=== PATIENT | female | born 1980 | race Caucasian/White ===

== ENCOUNTER 2017-12-29 16:00 | Emergency (ER) | payer MEDICAID ==
--- NOTE | 2017-12-29 16:47 | ED.PDOC ---
History of Present Illness - General Time Seen by Provider: 12/29/17 16:44 Source: patient Exam Limitations: no limitations - History of Present Illness Initial Comments: The patient is a 37-year-old female presenting to the emergency room secondary to itching of her skin. She has been exposed to sarcoptic mange. she does not appear to have significant folliculitis at this time. Her dog has just gotten treated. Additionally the patient has some right knee pain primarily over the medial collateral ligament and she has some locking and popping reported with her walking indicating a meniscus tear. ACL and PCL appear to be intact. She did not have any real trauma to the knee other than she just twisted it. She has injured this knee before. She is neurovascularly intact distally. Timing/Duration: unsure Severity: moderate Improving Factors: nothing Worsening Factors: nothing Associated Symptoms: denies symptoms Review of Systems - Review of Systems Constitutional: States: no symptoms reported EENTM: States: no symptoms reported Respiratory: States: no symptoms reported Cardiology: States: no symptoms reported Gastrointestinal/Abdominal: States: no symptoms reported Genitourinary: States: no symptoms reported Musculoskeletal: States: see HPI Skin: States: see HPI Neurological: States: no symptoms reported Endocrine: States: no symptoms reported All other Systems: No Change from Baseline Physical Exam - Physical Exam General Appearance: Alert, Comfortable, No apparent distress Eye Exam: bilateral normal Ears, Nose, Throat: hearing grossly normal, normal ENT inspection, normal pharynx Neck: full range of motion, supple Respiratory: no respiratory distress, no accessory muscle use Cardiovascular/Chest: normal peripheral pulses, no edema Peripheral Pulses: radial,right: 2+, radial,left: 2+ Rectal Exam: deferred Back Exam: no CVA tenderness, no vertebral tenderness Extremity: no pedal edema, normal capillary refill, other - see history of present illness Neurologic: vp cardiovascular service line II-XII nml as tested, alert, normal mood/affect, oriented x 3 Skin Exam: normal color Progress - Progress Progress: 12/29/17 16:47 the patient's 37-year-old female presenting to the emergency room secondary to right knee pain is most consistent with a medial collateral ligament injury along with a meniscus tear. The patient is going to be placed in a knee immobilizer. She needs to use this for 3-6 weeks. If she is still having some issue with the knee then she may require further orthopedic evaluation and imaging. She is neurovascularly intact at this time. Additionally the patient may be having some skin irritation from exposure to mange. She should use Vaseline intensive care lotion and she can continue to use her hydroxyzine as needed. ER warnings were given for any significant worsening. [id number] anti-inflammatory such as Motrin or Aleve can help some with the discomfort. Keep routine follow-up with primary care doctor. Departure - Departure Clinical Impression: Sarcoptes scabiei infestation Knee MCL sprain Qualifiers: Encounter type: initial encounter Laterality: right Qualified Code(s): S83.411A - Sprain of medial collateral ligament of right knee, initial encounter Disposition: Discharge to Home or Self Care Condition: Fair Diet: regular diet Activity: increase activity as tolerated Referrals: MINDI WELCH [Primary Care Provider] - 1-2 Weeks Additional Instructions: the patient's 37-year-old female presenting to the emergency room secondary to right knee pain is most consistent with a medial collateral ligament injury along with a meniscus tear. The patient is going to be placed in a knee immobilizer. She needs to use this for 3-6 weeks. If she is still having some issue with the knee then she may require further orthopedic evaluation and imaging. She is neurovascularly intact at this time. Additionally the patient may be having some skin irritation from exposure to mange. She should use Vaseline intensive care lotion and she can continue to use her hydroxyzine as needed. ER warnings were given for any significant worsening. [id number] anti-inflammatory such as Motrin or Aleve can help some with the discomfort. Keep routine follow-up with primary care doctor.
[2017-12-29 19:05] VITALS: BP 136/81; TEMP 99; O2SAT 95
== END 2017-12-29 17:01 | disposition home or self-care (01) ==
LOC: ER 16:00
DX: B86 Scabies (principal); S83.411A Sprain of medial collateral ligament of right knee, initial encounter; X50.0XXA Overexertion from strenuous movement or load, initial encounter; Y92.9 Unspecified place or not applicable

== ENCOUNTER 2018-01-05 15:58 | Emergency (ER) | payer MEDICAID | END 2018-01-05 16:21 | disposition left against medical advice (07) | LOC: ER 15:58 | DX: Z53.21 Procedure and treatment not carried out due to patient leaving prior to being seen by health care provider (principal) ==

== ENCOUNTER 2018-01-11 22:30 | Emergency (ER) | payer MEDICAID ==
--- NOTE | 2018-01-11 22:42 | ED.PDOC ---
History of Present Illness - General Chief Complaint: Skin/Abrasion/Tear Stated Complaint: skin rash Time Seen by Provider: 01/11/18 22:41 Source: patient Exam Limitations: no limitations - History of Present Illness Initial Comments: Aurea Garrett 37 y/o female stated that she held a kitten to check the gender as requested by niece and after several minutes started sneezing and had been itching all over Stated had same symptoms several years ago with sneezing and eyes got watery after she came across several cats.Denies SOB,difficulty swallowing.Also requesting Rx for lasix. Timing/Duration: just prior to arrival Severity: moderate Location: extremities Improving Factors: nothing Worsening Factors: nothing Associated Symptoms: rash Allergies/Adverse Reactions: Allergies Meperidine Allergy (Verified 01/11/18 22:52) Other Causes her to feel "like she is on fire" Metoclopramide [From Reglan] Adverse Reaction (Verified 01/11/18 22:52) Other Causes "skin to crawl" Prochlorperazine [From Compazine] Adverse Reaction (Verified 01/11/18 22:52) Other Causes "skin to crawl" Promethazine [From Phenergan] Adverse Reaction (Verified 01/11/18 22:52) Other Causes her "skin to crawl" Home Medications: Ambulatory Orders Furosemide [Lasix] 20 mg PO BID #20 tab 01/11/18 hydrOXYzine HCl [Atarax] 25 mg PO Q6HRS #10 tab 01/11/18 Review of Systems - Review of Systems Constitutional: States: no symptoms reported EENTM: States: no symptoms reported Respiratory: States: no symptoms reported Skin: States: see HPI All other Systems: Reviewed and Negative, No Change from Baseline Past Medical History (General) - Patient Medical History Hx Stroke: No Hx Asthma: Yes Hx of COPD: Yes Hx Cardiac Disorders: Yes - high cholesterol Hx Congestive Heart Failure: No Hx Hypertension: Yes Hx Diabetes: No Hx Gastroesophageal Reflux: Yes Surgical History: other - BTL - Vaccination History Hx Influenza Vaccination: No Hx Pneumococcal Vaccination: No - Social History Hx Tobacco Use: Yes - Quit 10/2017 Hx Alcohol Use: No Hx Substance Use: No Hx Physical Abuse: No Hx Emotional Abuse: No - Female History Hx Last Menstrual Period: 12/29/17 Patient : No Family Medical History - Family History Mother Family History: No Known Living Status: Still Living Hx Family Asthma: Yes Hx Family Hypertension: Yes Hx Cardiac Disease: Yes Hx Family Diabetes: Yes Physical Exam - Physical Exam General Appearance: Alert, Comfortable, No apparent distress Eyes, Ears, Nose, Throat Exam: normal ENT inspection, pharynx normal Neck: non-tender Cardiovascular/Chest: normal peripheral pulses, regular rate, rhythm, no murmur Respiratory: lungs clear, normal breath sounds, no respiratory distress Gastrointestinal/Abdominal: non tender, soft Back Exam: normal inspection Extremity: normal inspection, no calf tenderness, pedal edema - +1 pedal edema bilaterally Skin Exam: warm/dry, normal color Skin Problem Location: upper extremities Skin Character: macules, rash Lymphatic: no adenopathy Progress - Progress Progress: 01/11/18 23:02 Vital Signs - 8 hr 01/11/18 22:42 Temperature 97.4 F L Pulse Rate [ 82 left] Respiratory 18 Rate Blood Pressure 158/95 [left] O2 Sat by Pulse 97 Oximetry Departure - Departure Clinical Impression: Contact allergic reaction Time of Disposition: 23:03 Disposition: Discharge to Home or Self Care Condition: Fair Departure Forms: ED Discharge - Pt. Copy, Patient Portal Self Enrollment Instructions: DI for General Allergic Reactions Prescriptions: hydrOXYzine HCl [Atarax] 25 mg PO Q6HRS #10 tab Furosemide [Lasix] 20 mg PO BID #20 tab Home Medications: Ambulatory Orders Furosemide [Lasix] 20 mg PO BID #20 tab 01/11/18 hydrOXYzine HCl [Atarax] 25 mg PO Q6HRS #10 tab 01/11/18 Additional Instructions: NEED TO SIGN UP WITH PRIMARY MD of choice
[2018-01-11] MEDS ORDERED: EPINEPHrine HCL AMP 1 MG/ML AMP IM ONE (22:58)
[2018-01-11] MEDS ORDERED: diphenhydrAMINE HCL 50 MG/ML VIAL IM ONE (22:58)
[2018-01-11 23:02] VITALS: TEMP 97.4; O2SAT 97
[2018-01-11 23:35] VITALS: BP 152/89
== END 2018-01-11 23:35 | disposition home or self-care (01) ==
LOC: ER 22:30
DX: L23.81 Allergic contact dermatitis due to animal (cat) (dog) dander (principal); J44.9 Chronic obstructive pulmonary disease, unspecified; J45.909 Unspecified asthma, uncomplicated; E78.00 Pure hypercholesterolemia, unspecified; I10 Essential (primary) hypertension; K21.9 Gastro-esophageal reflux disease without esophagitis; Z87.891 Personal history of nicotine dependence; Y92.9 Unspecified place or not applicable
CPT/HCPCS: 96372; 99284; J1200

== ENCOUNTER 2019-10-30 05:35 | Emergency (ER) | payer SELFPAY ==
[2019-10-30 05:58] VITALS: TEMP 98.2; O2SAT 98
[2019-10-30] MEDS ORDERED: KETOROLAC TROMETHAMINE INJ 60 MG/2 ML VIAL IM ONE ×2 (06:16)
--- NOTE | 2019-10-30 06:19 | ED.PDOC ---
History of Present Illness - General Chief Complaint: Dental/Mouth Stated Complaint: severe toothache Time Seen by Provider: 10/30/19 06:03 Source: patient - History of Present Illness Initial Comments: 39 yo female who presents with cc of toothache. Onset suddenly yesterday afternoon without injury. Located to both her decayed mandibular Right 2nd premolar and maxillary Right 1st molar tooth, which are both severely decayed. Reports worsening since onset - now states 10/10 severity, sharp, radiates to Right ear, tried Tylenol and topical therapy OTC without relief, worse with cold/hot temperatures and chewing. 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 Denies being recently seen elsewhere for this issue. Does not have a dentist. Denies illicit drug use. Allergies/Adverse Reactions: Allergies Meperidine Allergy (Verified 01/11/18 22:52) Other Causes her to feel "like she is on fire" Tramadol Allergy (Verified 10/30/19 05:55) Metoclopramide [From Reglan] Adverse Reaction (Verified 10/30/19 05:55) Other Causes "skin to crawl" Prochlorperazine [From Compazine] Adverse Reaction (Verified 10/30/19 05:55) Other Causes "skin to crawl" Promethazine [From Phenergan] Adverse Reaction (Verified 10/30/19 05:55) Other Causes her "skin to crawl" steroids Allergy (Uncoded 01/11/18 23:03) causes high blood sugars Home Medications: Ambulatory Orders Furosemide [Lasix] 20 mg PO BID #20 tab 01/11/18 hydrOXYzine HCl [Atarax] 25 mg PO Q6HRS #10 tab 01/11/18 Acetaminophen W/ Codeine [Tylenol W/ CODEINE #3] 1 ea PO Q6H PRN 7 Days #10 10/30/19 Amoxicillin 500 mg PO TID 7 Days #21 cap 10/30/19 Review of Systems - Review of Systems Review of Systems: 10/30/19 06:19 as per HPI All other Systems: Reviewed and Negative Past Medical History (General) - Patient Medical History Hx Seizures: No Hx Stroke: No Hx Dementia: No Hx Asthma: Yes - on her Hx Hx of COPD: Yes - on her Hx Hx Cardiac Disorders: Yes - high cholesterol Hx Congestive Heart Failure: No Hx Pacemaker: No Hx Hypertension: Yes - was taking medications Hx Thyroid Disease: No Hx Diabetes: No Hx Gastroesophageal Reflux: Yes Hx Renal Disease: No Hx Cancer: No Hx of HIV: No Hx Hepatitis C: No Hx MRSA: No - Vaccination History Hx Tetanus, Diphtheria Vaccination: Yes Hx Influenza Vaccination: No - makes her sick Hx Pneumococcal Vaccination: No - Social History Hx Tobacco Use: Yes Hx Alcohol Use: No Hx Substance Use: No Hx Physical Abuse: No Hx Emotional Abuse: No - Female History Hx Last Menstrual Period: 12/29/17 Patient : No Family Medical History - Family History Mother Family History: No Known Living Status: Still Living Hx Family Asthma: Yes Hx Family Hypertension: Yes Hx Cardiac Disease: Yes Hx Family Diabetes: Yes Physical Exam - Physical Exam General Appearance: Alert, Anxious, No apparent distress Eye Exam: bilateral normal Ears, Nose, Throat: hearing grossly normal, normal pharynx, other - R mandibular 2nd premolar and R maxillary 1st molar teeth with marked decay with exposed dentin/pulp noted, no swelling/redness/discharge of gumline, marked ttp of area Neck: non-tender, full range of motion, supple, normal inspection Respiratory: lungs clear, normal breath sounds, no respiratory distress, no accessory muscle use Cardiovascular/Chest: normal peripheral pulses, regular rate, rhythm, no edema, no gallop, no JVD, no murmur Peripheral Pulses: radial,right: 2+, radial,left: 2+ Gastrointestinal/Abdominal: non tender, soft Back Exam: normal inspection, no CVA tenderness, no vertebral tenderness Extremity: normal range of motion, non-tender, normal inspection, no pedal edema, no calf tenderness Neurologic: 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 Offered to give her a 1-time Rx of PRN Tylenol #3 out of this ED for now. Will also give amoxicillin Rx in case of developing periapical abscess -dc home in good condition, return warnings discussed Von Cabrera, MD Billing #[id number] Departure - Departure Clinical Impression: Dental caries, Tooth hypersensitivity Time of Disposition: 06:26 Disposition: Discharge to Home or Self Care Condition: Good Departure Forms: ED Discharge - Pt. Copy, Patient Portal Self Enrollment Instructions: DI for Dental Pain Diet: resume usual diet Activity: increase activity as tolerated Prescriptions: Acetaminophen W/ Codeine [Tylenol W/ CODEINE #3] 1 ea PO Q6H PRN 7 Days #10 PRN Reason: Pain Amoxicillin 500 mg PO TID 7 Days #21 cap Home Medications: Ambulatory Orders Furosemide [Lasix] 20 mg PO BID #20 tab 01/11/18 hydrOXYzine HCl [Atarax] 25 mg PO Q6HRS #10 tab 18 Acetaminophen W/ Codeine [Tylenol W/ CODEINE #3] 1 ea PO Q6H PRN 7 Days #10 10/30/19 Amoxicillin 500 mg PO TID 7 Days #21 cap 10/30/19 Additional Instructions: Follow up with your dentist for definitive treatment with extraction of the affected teeth. Continue pain measures by eating a lukewarm soft diet and OTC medications such as ibuprofen 800 mg every 8 hours, Tylenol 650 mg every 6 hours, topical Orajel to affected teeth, etc... You may take the Tylenol #3 for breakthrough pain. Do not drive or operate heavy machinery while taking this medication as it may make you drowsy.
[2019-10-30] MEDS ORDERED: ACETAMINOPHEN W/COD #3 TAB (ER Disp) PO ONE (06:24)
[2019-10-30] MEDS ORDERED: ACETAMINOPHEN W/COD #3 TAB (ER Disp) ONE (06:24)
[2019-10-30] MEDS ORDERED: AMOXICILLIN 500 MG CAP PO ONE (06:24)
[2019-10-30] MEDS ORDERED: cloNIDine HCL 0.1 MG TAB ONE (06:33)
[2019-10-30] MEDS: cloNIDine HCL 0.1 MG TAB PO ONE ×2 (06:35→06:37)
[2019-10-30 06:45] VITALS: BP 194/119
== END 2019-10-30 06:38 | disposition home or self-care (01) ==
LOC: ER 05:35
DX: K02.9 Dental caries, unspecified (principal); K21.9 Gastro-esophageal reflux disease without esophagitis; I10 Essential (primary) hypertension; E78.00 Pure hypercholesterolemia, unspecified; J44.9 Chronic obstructive pulmonary disease, unspecified; Z87.891 Personal history of nicotine dependence; Z79.899 Other long term (current) drug therapy; Z88.8 Allergy status to other drugs, medicaments and biological substances; Z88.5 Allergy status to narcotic agent

== ENCOUNTER 2020-02-19 14:41 | Emergency (ER) | payer OTHER ==
[2020-02-19 14:55] VITALS: TEMP 98.2
[2020-02-19] MEDS ORDERED: AMOXICILLIN & POT CLAVULANATE 875 MG TAB PO ONE (15:01)
[2020-02-19] MEDS ORDERED: METOPROLOL SUCCINATE XL 50 MG TAB PO ONE (15:01)
--- NOTE | 2020-02-19 15:05 | ED.PDOC ---
History of Present Illness - General Chief Complaint: General Stated Complaint: bilateral ear pain and not feelingwell Time Seen by Provider: 02/19/20 15:00 Source: patient Exam Limitations: no limitations - History of Present Illness Initial Comments: Patient is a 39-year-old female presented emergency room secondary to nasal congestion that is been going on for the last month. The patient does have severe seasonal allergies and has been taking intermittent Benadryl. No other antihistamines. She reports that she cannot take any steroids of any kind. She denies using any Sudafed. Additionally the patient reports intermittent compliance with taking her metoprolol. Not eating today and her blood pressures are significantly elevated. She has had significant headaches in the past none currently. No altered mental status. No current chest pain. No shortness of breath. No fever. No rash. No syncope. Timing/Duration: other - 1 month Severity: moderate Improving Factors: nothing Worsening Factors: nothing Associated Symptoms: headaches, malaise Allergies/Adverse Reactions: Allergies Meperidine Allergy (Verified 01/11/18 22:52) Other Causes her to feel "like she is on fire" Tramadol Allergy (Verified 10/30/19 05:55) Metoclopramide [From Reglan] Adverse Reaction (Verified 10/30/19 05:55) Other Causes "skin to crawl" Prochlorperazine [From Compazine] Adverse Reaction (Verified 10/30/19 05:55) Other Causes "skin to crawl" Promethazine [From Phenergan] Adverse Reaction (Verified 10/30/19 05:55) Other Causes her "skin to crawl" steroids Allergy (Uncoded 01/11/18 23:03) causes high blood sugars Home Medications: Ambulatory Orders Furosemide [Lasix] 20 mg PO BID #20 tab 01/11/18 hydrOXYzine HCl [Atarax] 25 mg PO Q6HRS #10 tab 01/11/18 Acetaminophen W/ Codeine [Tylenol W/ CODEINE #3] 1 ea PO Q6H PRN 7 Days #10 10/30/19 Amoxicillin 500 mg PO TID 7 Days #21 cap 10/30/19 Amoxicillin & Pot Clavulanate [Augmentin Tab] 875 mg PO BID #20 tab 02/19/20 Azelastine Nasal [place] [Astelin Nasal [place]] 137 mcg NA BID #1 bttl 02/19/20 Cetirizine HCl [ZyrTEC] 10 mg PO DAILY #30 tab 02/19/20 Metoprolol Succinate [Toprol XL] 50 mg PO QDPC #30 tab 02/19/20 Review of Systems - Review of Systems Constitutional: States: malaise EENTM: States: nose congestion Respiratory: States: no symptoms reported Cardiology: States: no symptoms reported Gastrointestinal/Abdominal: States: no symptoms reported Genitourinary: States: no symptoms reported Musculoskeletal: States: no symptoms reported Skin: States: no symptoms reported Neurological: States: headache - Not currently Endocrine: States: no symptoms reported All other Systems: No Change from Baseline Past Medical History (General) - Patient Medical History Hx Seizures: No Hx Stroke: No Hx Dementia: No Hx Asthma: No Hx of COPD: No Hx Cardiac Disorders: No Hx Congestive Heart Failure: No Hx Pacemaker: No Hx Hypertension: No Hx Thyroid Disease: No Hx Diabetes: No Hx Gastroesophageal Reflux: No Hx Renal Disease: No Hx Cancer: No Hx of HIV: No Hx Hepatitis C: No Hx MRSA: No - Vaccination History Hx Tetanus, Diphtheria Vaccination: Yes Hx Influenza Vaccination: No Hx Pneumococcal Vaccination: No Immunizations Up to Date: No - Social History Hx Tobacco Use: Yes Hx Chewing Tobacco Use: No Hx Alcohol Use: Yes Hx Substance Use: Yes - PAST HISTORY Hx Depression: No Feels Threatened In Home Enviroment: No Feels Threatened In a Relationship: No Hx Physical Abuse: No Hx Emotional Abuse: No Hx Suspected Abuse: No - Female History Hx Last Menstrual Period: 12/29/17 Patient : No Family Medical History - Family History Mother Family History: No Known Living Status: Still Living Hx Family Asthma: Yes Hx Family Congestive Heart Failure: No Hx Family Hypertension: Yes Hx Cardiac Disease: Yes Hx Family Diabetes: Yes Physical Exam - Physical Exam General Appearance: Alert, Comfortable, No apparent distress Eye Exam: bilateral normal Ears, Nose, Throat: hearing grossly normal, normal pharynx, nasal congestion Neck: full range of motion, supple - Mild anterior left cervical lymphadenopathy Respiratory: lungs clear, normal breath sounds, no respiratory distress, no accessory muscle use Cardiovascular/Chest: normal peripheral pulses, regular rate, rhythm, no edema Peripheral Pulses: radial,right: 2+, radial,left: 2+ Gastrointestinal/Abdominal: non tender, soft Rectal Exam: deferred Back Exam: no CVA tenderness Extremity: normal range of motion, no pedal edema, normal capillary refill 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 The patient is going to be written for Zyrtec and Augmentin. Additionally the patient has poorly controlled asymptomatic hypertension. She is going to be refilled on her metoprolol XL. She does need to take this daily. She is to follow back up with her primary care doctor in 1 to 2 weeks for repeat evaluation. ER warnings are given. She does need to record her blood pressure several times daily when she is good and relaxed take these to her follow-up appointment. She does need to remain compliant with her blood pressure medication. tay samaniego [id number] Departure - Departure Clinical Impression: Uncontrolled hypertension Sinusitis Qualifiers: Sinusitis location: maxillary Chronicity: subacute Qualified Code(s): J01.00 - Acute maxillary sinusitis, unspecified Disposition: Discharge to Home or Self Care Condition: Fair Departure Forms: ED Discharge - Pt. Copy, Patient Portal Self Enrollment Diet: diabetic diet Activity: increase activity as tolerated Prescriptions: Amoxicillin & Pot Clavulanate [Augmentin Tab] 875 mg PO BID #20 tab Azelastine Nasal [place] [Astelin Nasal [place]] 137 mcg NA BID #1 bttl Cetirizine HCl [ZyrTEC] 10 mg PO DAILY #30 tab Metoprolol Succinate [Toprol XL] 50 mg PO QDPC #30 tab Home Medications: Ambulatory Orders Furosemide [Lasix] 20 mg PO BID #20 tab 01/11/18 hydrOXYzine HCl [Atarax] 25 mg PO Q6HRS #10 tab 01/11/18 Acetaminophen W/ Codeine [Tylenol W/ CODEINE #3] 1 ea PO Q6H PRN 7 Days #10 10/30/19 Amoxicillin 500 mg PO TID 7 Days #21 cap 10/30/19 Amoxicillin & Pot Clavulanate [Augmentin Tab] 875 mg PO BID #20 tab 02/19/20 Azelastine Nasal [place] [Astelin Nasal [place]] 137 mcg NA BID #1 bttl 02/19/20 Cetirizine HCl [ZyrTEC] 10 mg PO DAILY #30 tab 02/19/20 Metoprolol Succinate [Toprol XL] 50 mg PO QDPC #30 tab 02/19/20 Additional Instructions: The patient is a 39-year-old female presented emergency room secondary to chronic sinusitis. The patient is going to be written for Zyrtec and Augmentin. Additionally the patient has poorly controlled asymptomatic hypertension. She is going to be refilled on her metoprolol XL. She does need to take this daily. She is to follow back up with her primary care doctor in 1 to 2 weeks for repeat evaluation. ER warnings are given. She does need to record her blood pressure several times daily when she is good and relaxed take these to her follow-up appointment. She does need to remain compliant with her blood pressure medication.
[2020-02-19 15:45] VITALS: BP 179/109; O2SAT 98
== END 2020-02-19 15:28 | disposition home or self-care (01) ==
LOC: ER 14:41
DX: I10 Essential (primary) hypertension (principal); J01.00 Acute maxillary sinusitis, unspecified

== ENCOUNTER 2020-05-02 11:01 | Emergency (ER) | payer OTHER ==
--- NOTE | 2020-05-02 11:38 | ED.PDOC ---
History of Present Illness - General Chief Complaint: GI Problem Stated Complaint: N/V, Diarrhea, Sinus pain Time Seen by Provider: 05/02/20 11:10 Additional Information: The patient is a 40-year-old female presents emergency department with sore throat nasal congestion sinus pressure.She states that she has had symptoms about a week. She reports diarrhea stating she has 3-4 loose stools every day.Last bowel movement was this morning at 5:30 AM. She states that she had some vomiting initially when this started but she has not had any vomiting the last 3 days. - History of Present Illness Allergies/Adverse Reactions: Allergies Meperidine Allergy (Verified 05/02/20 11:20) Other Causes her to feel "like she is on fire" Tramadol Allergy (Verified 05/02/20 11:20) Metoclopramide [From Reglan] Adverse Reaction (Verified 05/02/20 11:20) Other Causes "skin to crawl" Prochlorperazine [From Compazine] Adverse Reaction (Verified 05/02/20 11:20) Other Causes "skin to crawl" Promethazine [From Phenergan] Adverse Reaction (Verified 05/02/20 11:20) Other Causes her "skin to crawl" steroids Allergy (Uncoded 05/02/20 11:20) causes high blood sugars Home Medications: Ambulatory Orders Furosemide [Lasix] 20 mg PO BID #20 tab 01/11/18 hydrOXYzine HCl [Atarax] 25 mg PO Q6HRS #10 tab 01/11/18 Acetaminophen W/ Codeine [Tylenol W/ CODEINE #3] 1 ea PO Q6H PRN 7 Days #10 10/30/19 Amoxicillin 500 mg PO TID 7 Days #21 cap 10/30/19 Amoxicillin & Pot Clavulanate [Augmentin Tab] 875 mg PO BID #20 tab 02/19/20 Azelastine Nasal Mingo [Astelin Nasal Mingo] 137 mcg NA BID #1 bttl 02/19/20 Cetirizine HCl [ZyrTEC] 10 mg PO DAILY #30 tab 02/19/20 Metoprolol Succinate [Toprol XL] 50 mg PO QDPC #30 tab 02/19/20 Review of Systems - Review of Systems Constitutional: States: chills. Denies: fever EENTM: States: throat pain. Denies: eye pain, blurred vision Respiratory: States: cough. Denies: orthopnea, short of breath, stridor, wheezing Cardiology: Denies: chest pain, palpitations Gastrointestinal/Abdominal: States: diarrhea, nausea. Denies: abdominal pain, constipation Musculoskeletal: Denies: back pain, gout Neurological: Denies: anxiety, depressed, emotional problems Endocrine: Denies: excessive sweating, flushing, intolerance to heat Hematologic/Lymphatic: Denies: see HPI, anemia Past Medical History (General) - Patient Medical History Hx Seizures: No Hx Stroke: No Hx Dementia: No Hx Asthma: No Hx of COPD: No Hx Cardiac Disorders: No Hx Congestive Heart Failure: No Hx Pacemaker: No Hx Hypertension: No Hx Thyroid Disease: No Hx Diabetes: No Hx Gastroesophageal Reflux: No Hx Renal Disease: No Hx Cancer: No Hx of HIV: No Hx Hepatitis C: No Hx MRSA: No - Vaccination History Hx Tetanus, Diphtheria Vaccination: Yes Hx Influenza Vaccination: No Hx Pneumococcal Vaccination: No - Social History Hx Tobacco Use: Yes Hx Chewing Tobacco Use: No Hx Alcohol Use: Yes Hx Substance Use: Yes - PAST HISTORY Hx Depression: No Hx Physical Abuse: No Hx Emotional Abuse: No Hx Suspected Abuse: No - Activities of Daily Living Hospice Agency (if applicable):: None - Female History Patient is a Female of Child Bearing Age (10 -59 yrs old): No Hx Last Menstrual Period: 12/29/17 Patient : No Family Medical History - Family History Mother Family History: No Known Living Status: Still Living Hx Family Asthma: Yes Hx Family Congestive Heart Failure: No Hx Family Hypertension: Yes Hx Cardiac Disease: Yes Hx Family Diabetes: Yes Physical Exam - Physical Exam General Appearance: Alert, Anxious Eye Exam: left normal Ears, Nose, Throat: pharyngeal erythema, tonsillar swelling Neck: non-tender, full range of motion, normal inspection, other - No lymphadenopathy Respiratory: chest non-tender, lungs clear, normal breath sounds Cardiovascular/Chest: normal peripheral pulses, regular rate, rhythm, no edema Peripheral Pulses: radial,right: 2+, radial,left: 2+ Gastrointestinal/Abdominal: normal bowel sounds, non tender, no organomegaly, no pulsatile mass, abnormal bowel sounds Rectal Exam: normal exam, normal rectal tone Back Exam: normal inspection, no CVA tenderness Extremity: normal range of motion, non-tender, normal inspection Neurologic: asset specialist II-XII nml as tested, no motor/sensory deficits, alert, normal mood/affect Skin Exam: normal color, warm/dry Departure - Departure Clinical Impression: Gastroenteritis, Strep pharyngitis Disposition: Discharge to Home or Self Care Condition: Fair Departure Forms: ED Discharge - Pt. Copy, Patient Portal Self Enrollment Diet: full liquid diet Referrals: Jenise Burr, [Non-Staff] - 1-2 Weeks Home Medications: Ambulatory Orders Furosemide [Lasix] 20 mg PO BID #20 tab 01/11/18 hydrOXYzine HCl [Atarax] 25 mg PO Q6HRS #10 tab 01/11/18 Acetaminophen W/ Codeine [Tylenol W/ CODEINE #3] 1 ea PO Q6H PRN 7 Days #10 10/30/19 Amoxicillin 500 mg PO TID 7 Days #21 cap 10/30/19 Amoxicillin & Pot Clavulanate [Augmentin Tab] 875 mg PO BID #20 tab 02/19/20 Azelastine Nasal Mingo [Astelin Nasal Mingo] 137 mcg NA BID #1 bttl 02/19/20 Cetirizine HCl [ZyrTEC] 10 mg PO DAILY #30 tab 02/19/20 Metoprolol Succinate [Toprol XL] 50 mg PO QDPC #30 tab 02/19/20 Additional Instructions: Oral Hydration encouraged. Self isolating to go with results return. We will call you iF cOVID POSTIVE Results Comments: Please follow-up with your primary care physician 1 to 2 days. Please call and schedule an appointmentTo recheck today symptoms
[2020-05-02] MEDS ORDERED: PENICILLIN BENZATHINE 1.2 MU 1.2 MU/2 ML SYG IM ONE (11:58)
[2020-05-02 12:39] VITALS: TEMP 96.8
[2020-05-02 12:40] VITALS: BP 154/98; O2SAT 97
== END 2020-05-02 12:35 | disposition home or self-care (01) ==
LOC: ER 11:01
DX: K52.9 Noninfective gastroenteritis and colitis, unspecified (principal); J02.0 Streptococcal pharyngitis; Z87.891 Personal history of nicotine dependence; Z79.899 Other long term (current) drug therapy; Z88.8 Allergy status to other drugs, medicaments and biological substances; Z20.828 Contact with and (suspected) exposure to other viral communicable diseases
CPT/HCPCS: 36415; 87486; 87581; 87633; 87635; 87880; J0561